=== PATIENT | female | born 1995 | race Caucasian/White ===

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

== ENCOUNTER 2017-11-30 17:01 | Emergency (ER) | payer OTHER ==
[~2017-11-30] VITALS: Ht 165.1 cm; Wt 88.8 kg
[~2017-11-30 17:01] MED LIST changes: +BACLOFEN10 MG PO; +LAMOTRIGINE100 MG PO; +OXAYDO5 MG PO
[2017-11-30 17:47] LABS: HEMATOCRIT 37.9 % (36.0-46.0); HEMOGLOBIN 13.3 G/DL (11.9-15.5); MCH 30.3 PG (29.0-34.0); MCHC 35.1 G/DL (30.0-36.0); MCV 86.3 FL (83-99); PLATELET COUNT 274 K/uL (156-360); RBC DIS.WIDTH-CV 11.9 % (11.8-14.6); RBC DIS.WIDTH-SD 37.7 % (39-53); RED BLOOD COUNT 4.39 M/uL (3.80-5.20); WHITE BLOOD COUNT 8.1 K/uL (4.1-10.2)
[2017-11-30 18:03] LABS: CHLORIDE 109 mEq/L (99-109); POTASSIUM 3.6 mEq/L (3.7-5.4)
[2017-11-30 18:04] LABS: SODIUM 139 mEq/L (136-147)
[2017-11-30 18:05] LABS: GLUCOSE 86 mg/dL (70-99)
[2017-11-30 18:09] LABS: CREATININE 0.8 mg/dL (0.6-1.3); GFR ESTIMATE (CALCULATED) > 59 mL/min/
[2017-11-30 18:10] LABS: UREA NITROGEN (BUN) 14 mg/dL (9-23)
[2017-11-30 18:35] VITALS: BP 111/76
== END 2017-11-30 18:36 | disposition left against medical advice (07) ==
LOC: EME 17:01
DX: R42 Dizziness and giddiness (principal); R20.0 Anesthesia of skin; R20.2 Paresthesia of skin; H53.8 Other visual disturbances; Z82.3 Family history of stroke; F17.200 Nicotine dependence, unspecified, uncomplicated
CPT/HCPCS: 80048; 85027; 93005; 99281; 99284